=== PATIENT | female | born 1960 | race Caucasian/White ===

== ENCOUNTER 2016-08-06 18:11 | Emergency (ER) | payer OTHER, MEDICAID ==
[~2016-08-06] VITALS: Ht 170.2 cm; Wt 68.0 kg
[~2016-08-06 18:11] MED LIST: DILAUDID; EZET10TA PO; FENT-17 TD; KLO.5 PO; OXYC15TA75; SOMA; TIOT18CA3
[2016-08-06 18:15] VITALS: BP_SYST 155
--- NOTE | 2016-08-06 18:32 | NUR ---
Patient to ER bed 4 to gown for evaluation. Side rails up. Report given to Karli AMAYA.
--- NOTE | 2016-08-06 18:45 | NUR ---
Patient presents to the emergency department to be cleared for bed bugs, scabies, or anything else that may be contagious before she goes back to [facility]. Per patient, pt needs to be medically cleared before they can return to the counseling service. Patient noted to have red and white thick scaly rash to random parts of the body, denies itching or pain, states she has psoriasis.
--- NOTE | 2016-08-06 19:05 | NUR ---
FLY CANNON at bedside examining patient.
[2016-08-06 19:20] VITALS: BP_SYST 155
--- NOTE | 2016-08-06 19:20 | NUR ---
Patient given written and verbal discharge instructions and verbalizes understanding. ER bias cutter discussed with patient the results and treatment provided. Given copies of tests performed in ER. Patient in stable condition. ID arm band removed. Patient educated on pain management and to follow up with PMD. Pain Scale 0/10. Opportunity for questions provided and answered.
== END 2016-08-06 19:20 | disposition home or self-care (01) ==
LOC: SED 18:11
DX: Z00.00 Encounter for general adult medical examination without abnormal findings (principal); J44.9 Chronic obstructive pulmonary disease, unspecified; I10 Essential (primary) hypertension; F17.210 Nicotine dependence, cigarettes, uncomplicated; Z71.6 Tobacco abuse counseling; Z86.79 Personal history of other diseases of the circulatory system; Z88.0 Allergy status to penicillin
CPT/HCPCS: 99281

== ENCOUNTER 2016-12-05 15:15 | Emergency (ER) | payer OTHER, MEDICAID ==
[~2016-12-05] VITALS: Ht 170.2 cm; Wt 68.0 kg
[2016-12-05 15:15] VITALS: BP 136/86; PULSE 91; RESP 16; TEMP 96.1; O2SAT 96
[2016-12-05 16:04] LABS: BASOPHILS % (AUTO) 0.8 % (0.0-2.0); EOSINOPHILS # (AUTO) 0.3 K/uL (0.0-0.4); EOSINOPHILS % (AUTO) 5.6 % (0.0-4.0); HEMOGLOBIN 12.6 g/dL (12.0-16.0); LYMPHOCYTES # (AUTO) 2.2 K/uL (1.0-5.5); LYMPHOCYTES % (AUTO) 41.5 % (20.5-51.5); MEAN CORPUSCULAR HEMOGLOBIN 28 pg (27-31); MEAN CORPUSCULAR HGB CONC 32 % (32-36); MEAN CORPUSCULAR VOLUME 86 fL (79.0-98.0); MONOCYTES # (AUTO) 0.3 K/uL (0.0-1.0); MONOCYTES % (AUTO) 6.3 % (1.7-9.3); NEUTROPHILS # (AUTO) 2.4 K/uL (1.8-7.7); NEUTROPHILS % (AUTO) 45.8 % (40.0-70.0); PLATELET COUNT (AUTO) 262 K/uL (130-430); RED BLOOD CELL COUNT(AUTO) 4.54 MIL/uL (4.2-6.2); RED CELL DISTRIBUTION WIDTH 13.9 % (9.0-15.0); WHITE BLOOD COUNT (AUTO) 5.2 K/uL (4.8-10.8)
[2016-12-05 16:15] LABS: ANION GAP 9 (5-15); CALCIUM 9.3 mg/dL (8.4-11.0); CHLORIDE 100 mmol/L (98-107); CREATININE 0.94 mg/dL (0.55-1.30); GLUCOSE 72 mg/dL (70-99); SODIUM SERUM 141 mmol/L (136-145); UREA NITROGEN, BLOOD 14 mg/dL (8-21)
[2016-12-05 16:16] LABS: INR 1.1 (0.8-1.2); PROTHROMBIN TIME 11.7 SECS (9.5-12.5)
[2016-12-05 16:20] LABS: GFR AFRICAN AMERICAN 79 mL/min (>90)
[2016-12-05 16:23] LABS: ALANINE AMINOTRANSFERASE 19 U/L (12-78); ALBUMIN 3.7 g/dL (3.4-4.8); ASPARTATE AMINOTRANSFERASE 19 U/L (10-37); TOTAL BILIRUBIN 0.4 mg/dL (0.0-1.0)
[2016-12-05 17:24] VITALS: BP 132/89; PULSE 82; RESP 16; TEMP 96.1; O2SAT 96
== END 2016-12-05 17:24 | disposition home or self-care (01) ==
LOC: SED 15:15
DX: Z02.89 Encounter for other administrative examinations (principal); I63.9 Cerebral infarction, unspecified; I10 Essential (primary) hypertension; J44.9 Chronic obstructive pulmonary disease, unspecified; Z88.0 Allergy status to penicillin; Z79.899 Other long term (current) drug therapy; R51 Headache; H53.2 Diplopia
CPT/HCPCS: 36415; 70450-TC; 80053; 84484; 85025; 85610-TC; 99285